=== PATIENT | male | born 1970 | race Caucasian/White ===

== ENCOUNTER 2025-03-04 21:57 | Emergency (ER) | payer SELFPAY ==
[~2025-03-04] VITALS: Ht 165.1 cm; Wt 80.2 kg
[2025-03-04 22:01] VITALS: O2SAT 98
[2025-03-04] MEDS ORDERED: CEPH500C2 MT (22:44)
[2025-03-04] MEDS ORDERED: FAMO-135 MT (22:46)
[2025-03-04 22:51] VITALS: BP 129/82; PULSE 100; RESP 20; TEMP 37.3; O2SAT 97
== END 2025-03-04 22:58 | disposition home or self-care (01) ==
LOC: ER 21:57
DX: L73.9 Follicular disorder, unspecified (principal); L03.90 Cellulitis, unspecified; E11.9 Type 2 diabetes mellitus without complications; Z88.0 Allergy status to penicillin; W57.XXXA Bitten or stung by nonvenomous insect and other nonvenomous arthropods, initial encounter; Y93.89 Activity, other specified; Y92.89 Other specified places as the place of occurrence of the external cause; Y99.8 Other external cause status
CPT/HCPCS: 99283